=== PATIENT | female | born 1945 | race Caucasian/White ===

== ENCOUNTER → 2019-08-12 | Outpatient (CLI) | payer OTHER ==
[~2019-08-12] VITALS: Ht 172.7 cm; Wt 127.9 kg
[~2019-08-12] MED LIST: CARVEDILOL25 MG PO; FUROSEMIDE 40 M40 MG PO; NOVOLIN 70100 UNIT/1 SUBQ; NOVOLIN N100 UNIT/1 SUBQ; PLAVIX 75 MG TA75 MG PO; SIMVASTATIN80 MG PO; SPIRONOLACTONE25 MG PO
[2019-08-12 13:13] VITALS: BP 117/72
--- NOTE | 2019-08-12 13:37 | NUR ---
Pain Clinic Assessment: 1. History of Osteoarthritis: History of Rheumatoid Arthritis: 2. Height: 5 ft. 8 in. 172.7 cm. Weight: 282.0 lb. oz. 127.915 kg. Patient's BMI: 42.9 3. Vital Signs: BP: 117/72 Pulse: 71 Resp: 16 Temp: 02 Sat: 96 ECG Mon: 4. Pain Intensity: 10 5. Fall Risk: Dizziness: Y Needs help standing or walking: Y Fallen in the last 3 months: N Fall risk comments: 6. Patient on Blood Thinner: Clopidogrel Bisulf(Plavix 7. History of Hypertension: Y 8. Opioid Therapy greater than 6 weeks: N Opiate Contract Signed: 9. Risk Assessment Tool Provided: 10. Functional Assessment Tool: 11. Recreational Drug Use: Never Drug Type: Tobacco Use: Never Smoker Tobacco Type: Amount or Packs/day: How Many Years: Alcohol Use: No Frequency: Quant:
--- NOTE | 2019-08-31 10:05 | HPC ---
[facility] [address] [address] PAIN MANAGEMENT CONSULTATION Name: ENRIQUETA JEAN Room #: REG DANIEL LaoSantiagoDeanSantiago#: [id number] Admission: 08/12/19 Attend Phys: Gustavo Tenorio DO Discharge: Date of : 45 Report #: [id number] THIS REPORT FOR: //name// CC: FAM unknown Gustavo James MD DATE OF SERVICE: 08/12/2019 REFERRING PHYSICIAN: Naveed James MD CHIEF COMPLAINT: Low back pain. HISTORY OF PRESENT ILLNESS: As you know, the patient is a 73-year-old female with longstanding history of low back pain with intermittent paresthesias. The patient has undergone evaluation with [facility] and has been advised she is not a current surgical candidate. She has been referred to our clinic to discuss the possibility of a spinal cord stimulator trial implantation. The patient indicates her pain has been present for an extended period of time. She denies any specific injury or trauma that may have led to symptom development. She sought initially conservative treatment options, but these were ineffective. She sought surgical consultation and it was advised no surgery at this point will be beneficial and that they considered a possible spinal cord stimulator and the patient was referred to discuss that today. The patient indicates today pain is continuous, describes the pain as stabbing, places current pain score 10/10, daily average at 10/10, worst pain has been 10/10. The patient states standing, walking exacerbate symptoms, nothing tends to improve pain. She has been referred to our service to discuss the possibility of undergoing spinal cord stimulator trial implantation. PAST MEDICAL HISTORY: 1. Diabetes mellitus type 2. 2. Hypertension. 3. Degenerative joint disease. 4. Osteoarthritis. 5. Chronic back pain. 6. Class 3 morbid obesity. 7. Chronic anticoagulation. PAST SURGICAL HISTORY: 1. Hysterectomy. 2. Total knee arthroplasty. 3. Cholecystectomy. 4. Cataract surgery. [facility] [address] [place] [address] PAIN MANAGEMENT CONSULTATION Name: ENRIQUETA JEAN Room #: REG DANIEL Chu#: [id number] Admission: 08/12/19 Attend Phys: Gustavo Tenorio DO Discharge: Date of : 45 Report #: [id number] 5. Laparoscopic back surgery. 6. Percutaneous coronary artery stenting x 2. SOCIAL HISTORY: The patient denies current tobacco, alcohol, IV or illicit drug use. 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 She is working, not receiving workmen's compensation nor is she trying to obtain disability benefits. She is not in litigation in regards to her pain. REVIEW OF SYSTEMS: Positive for fatigue and weakness, frequent and recurrent headaches, wearing corrective eyewear, cataracts, loss of appetite, frequent urination, nocturia, numbness and tingling sensations, dizziness, lightheadedness, changes in hair and nail texture, headaches, fatigue and weakness, diabetes, slow to heal after cuts, bleeding and bruising tendencies secondary to anticoagulation. All other review of systems negative per 12-point review of systems other than those listed in history of present illness. Pain impact score 40/70 indicating moderate to severe interference of daily activities secondary to pain. ALLERGIES: PENICILLIN. CURRENT MEDICATIONS: Novolin 35 units daily, furosemide 40 mg once a day, Plavix 75 mg per day, spironolactone 25 mg per day, carvedilol 25 mg twice a day, simvastatin 80 mg once a day. IMAGING: MRI lumbar spine obtained 06/30/2019 shows multilevel lumbar spondylosis with most pronounced changes at the L2-L3 level resulting in severe central canal stenosis. PQRS: The patient has known arthritic changes of the lumbar spine, bilateral hips and knees. No rheumatoid arthritis. She is placing pain intensity at 10/10. She is a fall risk, but has not had a fall in last 3 months. She does not use any type of ambulatory device. She is on a blood thinner in the form of Plavix. She is treated for hypertension. She is not on chronic opioids, has a low opioid addiction potential based on our assessment tool. Pain impact is rated at 40/70, moderate to severe interference of daily activities secondary to pain. PHYSICAL EXAMINATION: VITAL SIGNS: Blood pressure 117/72, pulse 71, respiratory rate 16 and unlabored. The patient is 96% on room air. Height 5 feet 8 inches tall, weight 282 pounds, BMI calculated 42.9. GENERAL: Well-developed, well-nourished, well-hydrated, class 3, morbidly obese 73-year-old female appearing stated age, pain is rated at 10/10. HEENT: Normocephalic, atraumatic. Pupils equal, round, reactive to light. EXTREMITIES: Show no clubbing, no cyanosis, and no edema. [address] [address] PAIN MANAGEMENT CONSULTATION Name: ENRIQUETA JEAN Room #: REG DANIEL Chu#: [id number] Admission: 08/12/19 Attend Phys: Gustavo Tenorio, DO Discharge: Date of : 45 Report #: [id number] MUSCULOSKELETAL: Lower extremity strength is symmetrical, but deconditioned bilaterally, rated at approximately 5/5. Seated straight leg raising negative. Supine straight leg raising is positive for axial back pain, posterolateral thigh, but no consistent dermatomal distribution. Ankle clonus negative. Babinski is negative. Gait is antalgic. There is loss of lordotic curvature and stance. Lumbar provocation testing is met with increasing pain in the axial back. ASSESSMENT: 1. Symptomatic lumbar radiculopathy. 2. Severe central canal stenosis of lumbar spine. 3. Displacement of lumbar intervertebral disk with radiculopathy. 4. Neural foraminal stenosis of lumbar spine. 5. Lumbar degeneration. 6. Chronic intractable pain. PLAN: 1. Based on today's physical exam and the history the patient provides, the description the patient uses in regards to pain as well as location of symptoms, likely source of the patient's pain is multifactorial. She does have central canal stenosis at L2-L3, which is consistent with the intermittent lower extremity numbness and tingling that is noted to be nearly completely all over lower legs. This is also noted on the anterior thighs and the distribution of L3. She also suffers from facet arthropathy of the lumbar spine, which is contributed by her significant obesity. We did discuss the treatment options that we have available and the spinal cord stimulator for which the patient was referred today. We discussed these following options for treatment. We discussed physical therapy, stretching exercises, core strengthening techniques and a concerted effort at weight loss. This would significantly improve the patient's axial back pain and potentially also improve her radicular symptoms. We discussed medication management with suggestions of treatment to involve nortriptyline, amitriptyline, Lyrica, Cymbalta or possibly gabapentin. We discussed a spinal cord stimulator for which the patient was referred. We also discussed surgical options which ultimately will be necessary. After reviewing risks and benefits of all proposed treatment options, the patient chose to move forward with spinal cord stimulator trial. 2. The patient will be sent for psychiatric evaluation. She was given the names of psychiatrists in the area that do perform the testing for a spinal cord stimulator. The patient will undergo this testing as quickly as possible. Once it is completed, she will return and we will review those findings. If there is no noted psychopathology, we will move forward with planning a trial implantation of the patient with a [employer] device per the request of Dr. Naveed James. 3. No medication changes made at today's visit. The patient will continue current medical therapy as prior prescribed. [address] [address] PAIN MANAGEMENT CONSULTATION Name: ENRIQUETA JEAN Room #: REG CLKahlil Chu#: [id number] Admission: 08/12/19 Attend Phys: Gustavo Tenorio DO Discharge: Date of : 45 Report #: [id number] 4. We will see the patient back in followup visit. Once she has completed her psychiatric evaluation, we will review those findings. If no psychopathology is noted, which would preclude us from having the patient undergo the spinal cord stimulator trial and the patient is able to come off the Plavix for the time frame of the trial which is 7 days prior to the procedure and throughout the procedure, so a total of 14 days, we will have the patient undergo the trial implantation. The patient will need to receive release from the prescribing physician to come off the Plavix for the 14 days required. We do understand that this is a risk and a concern, but based on JETT guidelines, this is a requirement. The patient will need to obtain this release to come off the medication if she wishes to move forward with the trial implantation. 5. We wish to thank Dr. James for the opportunity to see this patient in consultation. We will keep you apprised of her progress if she moves forward with a spinal cord stimulator and she is able to gain clearance to come off the Plavix in preparation for that procedure and remain off during the trial. Again, we wish to thank Dr. James for the referral of patient to our clinic. <ELECTRONICALLY SIGNED> By: Gustavo Tenorio DO 08/31/19 [id number] Gustavo Tenorio DO /nt
== END ==
LOC: PAIN 07:00
DX: M51.16 Intervertebral disc disorders with radiculopathy, lumbar region (principal); M48.061 Spinal stenosis, lumbar region without neurogenic claudication; G89.4 Chronic pain syndrome; Z79.899 Other long term (current) drug therapy; Z79.891 Long term (current) use of opiate analgesic